=== PATIENT | female | born 1955 | race Caucasian/White ===

== ENCOUNTER 2022-08-30 17:25 | Emergency (ER) | payer BC, MEDICARE ==
[~2022-08-30] VITALS: Ht 154.9 cm; Wt 101.2 kg
[2022-08-30] MEDS ORDERED: NIFEDIPINE ER30 M1 PO (17:57)
[2022-08-30] MEDS ORDERED: METFORMIN HCL500 M1 PO (17:57)
[2022-08-30] MEDS ORDERED: MICARDIS HCT 81 EACH (17:57)
[2022-08-30] MEDS ORDERED: ATENOLOL50 MG PO (17:57)
[2022-08-30] MEDS ORDERED: VENTOLIN HFA18 GM INH (18:12)
[2022-08-30] MEDS ORDERED: PREDNISONE20 MG PO (18:12)
[2022-08-30] MEDS ORDERED: AZITHROMYCIN250 MG PO (18:17)
== END 2022-08-30 18:20 | disposition home or self-care (01) ==
LOC: FSED 17:39
DX: R05.9 Cough, unspecified (principal); J06.9 Acute upper respiratory infection, unspecified; J02.9 Acute pharyngitis, unspecified
CPT/HCPCS: 83518; 87400; 99283